=== PATIENT | female | born 1965 | race Caucasian/White ===

== ENCOUNTER 2017-04-14 21:09 | Inpatient (IN) | payer MEDICAID ==
[2017-04-14] MEDS ORDERED: Morphine Sulfate 2 mg/mL 1mL Syr IVP ONE (21:37)
--- NOTE | 2017-04-14 21:37 | ED Physician Chart ---
Chief Complaint/HPI - Patient Information Date Seen:: 04/14/17 Time Seen:: 21:10 Chief Complaint:: Abdominal Pain History of Present Illness:: onset x one day of intermittent, crampy, generalized Abdominal Pain, N/V/D; no H /As, Neck Pain, C/P, SOB, Cough, A/C, fever, chills, or urinary s/s Allergies:: Allergies Allergy/AdvReac Type Severity Reaction Status Date / Time codeine Allergy Verified 04/14/17 21:15 Vitals:: Vital Signs - 8 hr 04/14/17 21:10 Temp 97.7 F HR 89 RR 16 BP 117/76 O2 Sat % 97 Historian:: Patient, EMS, Medical Records Review:: Nurse's Note Reviewed, Old Chart Reviewed, EMS run form Reviewed, Transfer documents Reviewed Review of Systems - Review of Systems General/Constitutional: Fever, Chills, No weight loss, Weakness, No diaphoresis , No edema, No loss of appetite Skin: No skin lesions, No rash, No bruising Head: No headache, No light-headedness Eyes: No loss of vision, No pain, No diplopia ENT: No earache, No nasal drainage, No sore throat, No tinnitus Neck: No neck pain, No swelling, No thyromegaly, No stiffness, No mass noted Cardio Vascular: No chest pain, No palpitations, No PND, No orthopnea, No edema Pulmonary: No SOB, No cough, No sputum, No wheezing GI: Nausea, Vomiting, Diarrhea, No diarrhea, Pain, No melena, No hematochezia, Constipation, No hematemesis G/U: Dysuria, Frequency, No hematuria Computer Lab Assistant: No vaginal discharge, No abnormal vaginal bleed, No contraction Musculoskeletal: Bone or joint pain, Back pain, No muscle pain Endocrine: No polyuria, No polydipsia Psychiatric: No prior psych history, No depression, No anxiety, No suicidal ideation, No homicidal ideation, No auditory hallucination, No visual hallucination Hematopoietic: No bruising, No lymphadenopathy Allergic/Immuno: No urticaria, No angioedema Neurological: No syncope, No focal symptoms, No weakness, No paresthesia, No headache, No seizure, No dizziness, No confusion, No vertigo Past Medical History - Past Medical History Obtainable: Yes Past Medical History: CVA/TIA, Other (Cirrhosis; Cancer) Family History: HTN, Cancer Social History: Smoker, Alcohol, No Drug Use, Single Surgical History: Cholecystectomy, Hysterectomy, Hernia Psychiatricy History: None Medication: Reviewed Family Medical History - Family Member Mother History Unknown: Yes Ethnicity: Non- Living Status: Still Living Hx Family Cancer: Yes Father History Unknown: Yes Living Status: Hx Family Hypertension: Yes Physical Exam - Physical Examination General/Constitutional: Awake, Well-developed, well-nourished, Alert, No distress, GCS 15, Non-toxic appearing, Ambulatory Head: Atraumatic Eyes: Lids, conjuctiva normal, PERRL, EOMI Skin: Nl inspection, No rash, No skin lesions, No ecchymosis, Well hydrated, No lymphadenopathy ENMT: External ears, nose nl, Nasal exam nl, Lips, teeth, gums nl Neck: Nontender, Full ROM w/o pain, No JVD, No nuchal rigidity, No bruit, No mass, No stridor Respiratory: Nl effort/Exclusion, Clear to Auscultation, No Wheeze/Rhonchi/Rales Cardio Vascular: RRR, No murmur, gallop, rubs, NL S1 S2 GI: No tenderness/rebounding/guarding, No organomegaly, No hernia, Normal BS's, Nondistended, No mass/bruits, No McBurney tenderness Other GI comments:: + Ascites : No CVA tenderness Extremities: No tenderness or effusion, Full ROM, normal strength in all extremities, No edema, Normal digits & nails Neuro/Psych: Alert/oriented, DTR's symmetric, Normal sensory exam, Normal motor strength, Judgement/insight normal, Mood normal, Normal gait, No focal deficits Misc: normal gait, Normal back, No paraspinal tenderness Labs/Radiology/EKG Results - Lab Results Results: Glucose: 217; U/A: + Leukocytes; + WBCs (50 to 100); WBC: 18.5 - Radiology Results Results: NAD - EKG Interpretations EKG Time:: 21:52 Rate & Rhythm: 74; NSR Comments:: non-specific st-t changes ED Septic Shock - . Is Septic Shock (SBP<90, OR Lactate>4 mmol\L) present?: No - <6hrs of presentation: Vital Signs: Vital Signs - 8 hr 08// 21:10 Temp 97.7 F HR 89 RR 16 BP 117/76 O2 Sat % 97 Reassessment (Disposition) - Reassessment Reassessment Condition:: Improved - Diagnosis Diagnosis:: UTI; Cystitis; Urinary Tract Infection; Leukocytosis; Hyperglycemia; Abdominal Pain; Gastritis; Sepsis; Urosepsis - Aftercare/Follow up Instructions Aftercare/Follow-Up Instructions:: Counseled pt regarding lab results/diagnosis & need follow up, Counseled pt & family regarding lab results/diagnosis & need follow up - Patient Disposition Discharge/Transfer:: Acute Care w/in this hosp Accepting Physician:: Dr. Blanton Time Called:: 199 Time Responded:: 02:00 Admitted to:: Med/Surg Spoke to:: Dr. Blanton Admitting Medical Physician:: Dr. Blanton Condition at Disposition:: Stable, Improved
[2017-04-14] MEDS ORDERED: Sodium Chloride 0.9% 1,000 ML IV ONE (21:39)
[2017-04-14] MEDS ORDERED: Morphine Sulfate 2 mg/mL 1mL Syr ONE (21:45)
[2017-04-14 21:52] LABS: % EOSINOPHILS 0.2 % (0.0-5.0)
[2017-04-14 21:55] LABS: % LYMPHOCYTES 9.7 % (20.0-50.0); % NEUTROPHILS 87.1 % (40.0-80.0); HEMATOCRIT 37.5 % (35.0-45.0); HEMOGLOBIN 12.9 gm/dL (11.7-15.5); MEAN CELL VOLUME 88.6 fl (81-100); MEAN CORPUSCULAR HEMOGLOBIN 30.4 pg (27.0-31.0); MEAN CORPUSCULAR HGB CONC 34.3 pg (28.0-36.0); MEAN PLATELET VOLUME 7.6 fl; NEUTROPHILE ABSOLUTE 16.1 Th/cmm (1.8-8.0); PLATELET COUNT 216 Th/cmm (150-400); RED BLOOD COUNT 4.24 Mil/cmm (3.80-5.10); RED CELL DISTRIBUTION WIDTH 14.1 % (11.5-20.0)
[2017-04-14 22:06] LABS: URINE BILIRUBIN NEGATIVE (NEGATIVE); URINE BLOOD SMALL (NEGATIVE); URINE GLUCOSE (UA) NEGATIVE (NEGATIVE); URINE KETONE NEGATIVE (NEGATIVE); URINE PH 5.5 (4.6 - 8.0); URINE PROTEIN NEGATIVE (NEGATIVE); URINE UROBILINOGEN 0.2 E.U./dL (0.2 - 1.0)
[2017-04-14 22:06] LABS: WHITE BLOOD COUNT 18.5 Th/cmm (4.8-10.8)
[2017-04-14 22:08] LABS: INR 0.96 (0.5-1.4)
[2017-04-14 22:08] LABS: URINE COLOR YELLOW
[2017-04-14 22:12] LABS: TROP I < 0.01 ng/mL (0.01-0.05)
[2017-04-14 22:13] LABS: ALB/GLOB RATIO 1.4 (1.0-1.8); ALKALINE PHOSPHATASE 93 U/L (34-104); ANION GAP 12.3 (7.0-16.0); BILIRUBIN,TOTAL 0.3 mg/dL (0.3-1.0); BUN - UREA NITROGEN 13 mg/dL (7-25); BUN/CREATININE RATIO 18.6; CALCIUM SERUM 9.4 mg/dL (8.6-10.3); CARBON DIOXIDE 22.7 mEq/L (21.0-31.0); CHLORIDE 106 mEq/L (98-107); CHOLESTEROL 192 mg/dL (<200); CREATININE - SERUM 0.7 mg/dL (0.6-1.2); GLUCOSE 217 mg/dL (70-105); SGOT 32 U/L (13-39); SGPT/ALT 73 U/L (7-52); SODIUM SERUM 137 mEq/L (136-145); TRIGLYCERIDES 192 mg/dL (<150)
[2017-04-14 22:14] LABS: AMYLASE SERUM 24 U/L (29-103); LIPASE 8 U/L (11-82)
[2017-04-14 22:21] LABS: URINE WBC 50-100 /hpf (0-5)
[2017-04-14 22:22] LABS: URINE BACTERIA NONE SEEN /hpf (NONE SEEN); URINE EPITHELIAL CELLS MODERATE /lpf (FEW)
[2017-04-14] MEDS ORDERED: cefTRIAXone 1 GM in Sodium Chloride 0.9% 50 ML IV ONE (23:03)
[2017-04-15] MEDS: D5-0.45NS 1,000 ML IV SCH ×2 (04:37→15:47)
[2017-04-15] MEDS: Levofloxacin 500mg/100mL 500 MG/100 ML BAG IV SCH (04:39)
--- NOTE | 2017-04-15 08:35 | Diagnostic Imaging Report ---
Portable chest x-ray History: Pain Allowing for portable technique the heart size is normal. No focal pulmonary parenchymal processes. No hilar or mediastinal abnormalities. Impression: No acute abnormalities.
--- NOTE | 2017-04-15 08:35 | Diagnostic Imaging Report ---
CT scan abdomen and pelvis without intravenous contrast HISTORY: Pain Total DLP equals 464 CTDI equals 10.3 Axial sections were obtained from the xiphoid process down to the pubic symphysis. Limited sections the lower chest demonstrate mild pleural thickening and subpleural parenchymal density that appears chronic within the left lower hemithorax. There is a small to moderate hiatal hernia. Relatively large amount of fat noted adjacent to the esophagus and the gastroesophageal junction area. The liver appears enlarged. There is a decrease in overall hepatic parenchymal density consistent with fatty infiltration. No focal lesions. The spleen appears normal. No abnormality seen in the region of the pancreas. Surgical clips are noted in the neha hepatis region consistent with a prior cholecystectomy. Heterogeneous density noted in subcutaneous tissues of the periumbilical region probably related prior surgery. There is a mildly distended stool-filled ascending colon. The remainder of the pelvis demonstrates preservation of normal fat planes. No abnormal soft tissue masses or abnormal fluid collections. IMPRESSION: 1. Pleural parenchymal density in the periphery of the left lower hemithorax that appears chronic. As this is somewhat more prominent than on a prior CT scan of 09/13/2015, a follow-up exam in 4 months would confirm stability. 2. Small hiatal hernia 3. Hepatomegaly with evidence of fatty infiltration. The changes should be correlated with liver function tests 4. Moderately distended stool-filled ascending colon. 5. Status post cholecystectomy
--- NOTE | 2017-04-15 12:07 | History & Physical ---
ADMIT DATE: 04/15/2017 PATIENT IDENTIFICATION: This is a 51-year-old female. CHIEF COMPLAINT: Lower abdominal pain. HISTORY OF PRESENT ILLNESS: A 51-year-old female with history of breast cancer, approximately 3 years ago had a mastectomy, also has history of diverticulosis, currently disabled from her chronic back, takes multiple pain medications, presented to Emergency Room for acute onset of lower abdominal pain. The patient was worked up in the Emergency Room and I was told that the patient has a urinary tract infection. Upon evaluation, the patient looks in significant amount of pain in the lower part of the abdomen. The patient has been advised to be admitted for further treatment. PAST MEDICAL HISTORY: Remarkable for: 1. Chronic pain syndrome. 2. Anxiety, depression. 3. Chronic constipation. 4. Gastritis. 5. Degenerative joint disease. 6. History of deep venous thrombosis. 7. Hyperlipidemia. 8. Breast cancer. 9. Depression. MEDICATIONS AT HOME: She is taking Celexa at bedtime, and B12, Bentyl, Colace, Pepcid, gabapentin, hydroxyzine, Reglan, morphine, omeprazole, Xarelto, Zocor, and trazodone. ALLERGIES: The patient is allergic to codeine and morphine, but the patient is taking these medications at home without any difficulty. SOCIAL HISTORY: The patient currently lives in [facility] with her . The patient currently does not smoke, does not drink. FAMILY MEDICAL HISTORY: Remarkable for hypertension and diabetes. REVIEW OF SYSTEMS: The patient is complaining of significant amount of lower back pain as well the lower abdominal pain, but denies any fever, chills, nausea, vomiting, chest pain, cough, hematemesis, hematuria, hematochezia, or melena. No history of any seizure or syncopal episode. No history of weight loss and no history of weight gain. No history of any tingling, numbness. PHYSICAL EXAMINATION: GENERAL: The patient is alert, awake, oriented, lying in the bed with some acute distress secondary to pain. VITAL SIGNS: On physical exam, temperature 98, pulse is 74, respiratory rate 18, blood pressure 134/74. SKIN: Warm to touch. Adequate skin turgor. No petechia, no purpura. HEENT: Normocephalic, atraumatic. Extraocular muscles are intact. Tongue was pink and coated. Poor dentition noted. No oral lesion, no exudate. No sinus tenderness. External auditory canals and tympanic membranes are well visualized. NECK: Supple, no JVD, no hepatojugular reflex. No lymphadenopathy, thyromegaly or carotid bruit. HEART: Both heart sounds are regular. No S3, no S4, no murmur. CHEST: Lung equal in expansion, no wheezing, no crackles. ABDOMEN: Distended. A well healed surgical scar from previous done umbilical hernia repair noted. Diffuse tenderness in the lower part noted with some guarding. Bowel sounds are present. No palpable mass. EXTREMITIES: No edema, no cyanosis, no clubbing. Peripheral pulses +2. No calf tenderness noted. NEUROLOGIC: Nonfocal. AVAILABLE DIAGNOSTIC DATA: Has been reviewed, which include CBC, chemistry panel, urinalysis along with CT scan of the abdomen and pelvis, and chest x-ray. Total time reviewing the record is approximately 10 minutes. CLINICAL IMPRESSION: 1. Diverticulitis. 2. Urinary tract infection. 3. Chronic pain syndrome. 4. Lower back pain. 5. Hyperlipidemia. 6. Deep venous thrombosis. 7. Anxiety, depression. 8. Degenerative joint disease. 9. History of breast cancer, status post mastectomy. PLAN: 1. Admit this patient to Med/Surg floor. 2. Clear liquid diet. 3. IV fluid. 4. IV antibiotic. 5. GI consult. 6. Appropriate home medication reconciliation. 7. Follow lab. 8. Follow applications consultant's recommendations. 9. Care plan is reviewed and discussed with staff. JOB# [id number]
[2017-04-15] MEDS ORDERED: DICYCLOMINE HCL 20 MG PO SCH (14:00)
[2017-04-15] MEDS: Dicyclomine 10 mg Cap PO SCH ×2 (14:02→21:46)
[2017-04-15] MEDS ORDERED: MORPHINE 60 MG PO SCH (17:00)
[2017-04-15] MEDS ORDERED: Magnesium Citrate 1.75 GM/300 mL Bottle PO ONE (18:22)
[2017-04-15] MEDS ORDERED: Non-Formulary Item 1 EA (Trazodone Hcl [Trazodone Hcl] 150 MG) PO SCH (21:00)
--- NOTE | 2017-04-15 22:35 | Consultation ---
DATE OF CONSULTATION: 04/15/2017 REASON FOR CONSULTATION: Abdominal pain. HISTORY OF PRESENT ILLNESS: This consult was obtained through the request of Dr. Blanton for this 51-year-old with history of obesity, chronic pain syndrome, anxiety, depression, degenerative joint disease, history of DVT, hyperlipidemia, history of breast cancer, depression, admitted to the hospital for abdominal pain first diagnosed with diverticulosis, but later on while in the hospital, she was found to have more fecal impaction than diverticulitis, GI consult was called in for further evaluation. The patient denies any weight loss. No hematemesis, melena or hematochezia. She denies having any fever. PAST MEDICAL HISTORY: As stated above. There is back problem. There is pain, anxiety, depression, DVT, hyperlipidemia, breast cancer. PAST SURGICAL HISTORY: She had hysterectomy. She had mastectomy. She had hernia repair, cholecystectomy. 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 FAMILY HISTORY: Mother with breast cancer with mets. Father of neck cancer. REVIEW OF SYSTEMS: She has nausea. She has constipation, but no fever. ALLERGIES: CODEINE AND MORPHINE. MEDICATIONS AT HOME: Including Celexa, B12, Bentyl, Colace, Pepcid, gabapentin, hydroxyzine, Reglan, morphine, omeprazole, Xalatan, Zocor, and trazodone. PHYSICAL EXAMINATION: GENERAL: The patient is awake and oriented to self, place, and time, in mild to moderate distress. VITAL SIGNS: Blood pressure is 100/66, heart rate 65, respiratory rate 18, temperature is 98.7. HEAD AND NECK: Pupils reactive to light and accommodation. Extraocular muscles intact. Sclerae are anicteric. Conjunctivae not pale. Oral cavity, no lesion. NECK: Supple, no jugular venous distention, no carotid bruits or lymph node. CHEST: Good respiratory movements. LUNGS: Clear to auscultation. CARDIOVASCULAR: Regular rate and rhythm. No murmur or gallop. ABDOMEN: Soft, distended, obese, mild diffuse tenderness. Bowel sounds are present. EXTREMITIES: Lower extremities, no edema. CENTRAL NERVOUS SYSTEM: Nonfocal. LABORATORY DATA: White count 18.5, H and H are normal. The patient had a CAT scan, which did show diverticulosis, but showed fatty liver and large amount of fecal material. ASSESSMENT AND PLAN: 1. Abdominal pain, most probably due to fecal impaction, could be early mild diverticular disease, could be inflammatory bowel syndrome. We will give the patient magnesium citrate, then mineral oil. We will start with clear liquid diet. We will continue with antibiotics for now and recheck labs. 2. Fatty liver. We will watch. At this time liver enzymes are acceptable, slight elevation of ALT so we will watch for now and then further recommendations to follow. Thank you, Dr. Blanton for allowing me to participate in the care of this patient. If you have any further questions, please let me know. JOB# [id number] ALECIA
[2017-04-16] MEDS: D5-0.45NS 1,000 ML IV SCH ×2 (03:17→15:58)
[2017-04-16] MEDS: Levofloxacin 500mg/100mL 500 MG/100 ML BAG IV SCH (04:02)
[2017-04-16 06:55] LABS: % BASOPHILS 1.1 % (0.0-2.0); % EOSINOPHILS 0.6 % (0.0-5.0); % LYMPHOCYTES 35.5 % (20.0-50.0); % MONOCYTES 12.6 % (2.0-10.0); % NEUTROPHILS 50.2 % (40.0-80.0); HEMATOCRIT 40.1 % (35.0-45.0); HEMOGLOBIN 13.3 gm/dL (11.7-15.5); MEAN CELL VOLUME 89.8 fl (81-100); MEAN CORPUSCULAR HEMOGLOBIN 29.7 pg (27.0-31.0); MEAN CORPUSCULAR HGB CONC 33.1 pg (28.0-36.0); MEAN PLATELET VOLUME 7.5 fl; NEUTROPHILE ABSOLUTE 2.9 Th/cmm (1.8-8.0); PLATELET COUNT 208 Th/cmm (150-400); RED BLOOD COUNT 4.46 Mil/cmm (3.80-5.10); RED CELL DISTRIBUTION WIDTH 14.5 % (11.5-20.0)
[2017-04-16 07:09] LABS: WHITE BLOOD COUNT 5.7 Th/cmm (4.8-10.8)
[2017-04-16 07:37] LABS: ALB/GLOB RATIO 1.3 (1.0-1.8); ALKALINE PHOSPHATASE 86 U/L (34-104); ANION GAP 9.1 (7.0-16.0); BILIRUBIN,TOTAL 0.3 mg/dL (0.3-1.0); BUN - UREA NITROGEN 10 mg/dL (7-25); BUN/CREATININE RATIO 11.1; CALCIUM SERUM 9.2 mg/dL (8.6-10.3); CARBON DIOXIDE 27.9 mEq/L (21.0-31.0); CHLORIDE 108 mEq/L (98-107); CREATININE - SERUM 0.9 mg/dL (0.6-1.2); GLUCOSE 127 mg/dL (70-105); SGOT 33 U/L (13-39); SGPT/ALT 60 U/L (7-52); SODIUM SERUM 141 mEq/L (136-145)
[2017-04-16] MEDS ORDERED: OMEPRAZOLE MAGNESIUM 20 MG PO SCH (09:00)
[2017-04-16] MEDS ORDERED: CITALOPRAM HYDROBROMIDE 40 MG PO SCH (09:00)
--- NOTE | 2017-04-16 09:06 | General Progress Note ---
Subjective - Review of Systems Subjective: Patient is seen and examined. Patient feels better. She wants to eat. Still complaining about constipation. Denies any fever, chills, chest pain, shortness of breath, palpitation, dizziness, nausea, vomiting. Objective - Results Result Diagrams: 04/16/17 06:25 04/16/17 06:25 Recent Labs: Laboratory Last Values WBC 5.7 Th/cmm (4.8-10.8) D 04/16/17 06:25 RBC 4.46 Mil/cmm (3.80-5.10) 04/16/17 06:25 Hgb 13.3 gm/dL (11.7-15.5) 04/16/17 06:25 Hct 40.1 % (35.0-45.0) 04/16/17 06:25 MCV 89.8 fl (81-100) 04/16/17 06:25 MCH 29.7 pg (27.0-31.0) 04/16/17 06:25 MCHC Differential 33.1 pg (28.0-36.0) 04/16/17 06:25 RDW 14.5 % (11.5-20.0) 04/16/17 06:25 Plt Count 208 Th/cmm (150-400) 04/16/17 06:25 MPV 7.5 fl 04/16/17 06:25 Neutrophils % 50.2 % (40.0-80.0) 04/16/17 06:25 Lymphocytes % 35.5 % (20.0-50.0) 04/16/17 06:25 Monocytes % 12.6 % (2.0-10.0) H 04/16/17 06:25 Eosinophils % 0.6 % (0.0-5.0) 04/16/17 06:25 Basophils % 1.1 % (0.0-2.0) 04/16/17 06:25 PT 10.0 SECONDS (9.5-11.5) 04/14/17 21:46 INR 0.96 (0.5-1.4) 04/14/17 21:46 PTT (Actin FS) 24.8 SECONDS (26.0-38.0) L 04/14/17 21:43 Sodium 141 mEq/L (136-145) 04/16/17 06:25 Potassium 4.0 mEq/L (3.5-5.1) 04/16/17 06:25 Chloride 108 mEq/L (98-107) H 04/16/17 06:25 Carbon Dioxide 27.9 mEq/L (21.0-31.0) 04/16/17 06:25 Anion Gap 9.1 (7.0-16.0) 04/16/17 06:25 BUN 10 mg/dL (7-25) 04/16/17 06:25 Creatinine 0.9 mg/dL (0.6-1.2) 04/16/17 06:25 Est GFR ( Amer) > 60.0 ml/min (>90) 04/16/17 06:25 Est GFR (Non-Af Amer) > 60.0 ml/min 04/16/17 06:25 BUN/Creatinine Ratio 11.1 04/16/17 06:25 Glucose 127 mg/dL (70-105) H 04/16/17 06:25 Hemoglobin A1c % 5.5 % (4.0-6.0) 04/14/17 21:43 Whole Bld Lactic Acid 1.79 mmol/L (0.60-1.99) 04/14/17 22:58 Calcium 9.2 mg/dL (8.6-10.3) 04/16/17 06:25 Total Bilirubin 0.3 mg/dL (0.3-1.0) 04/16/17 06:25 AST 33 U/L (13-39) 04/16/17 06:25 ALT 60 U/L (7-52) H 04/16/17 06:25 Alkaline Phosphatase 86 U/L (34-104) 04/16/17 06:25 Creatine Kinase 67 U/L (30-223) 04/14/17 21:46 Troponin I < 0.01 ng/mL (0.01-0.05) L 04/14/17 21:46 B-Natriuretic Peptide 102.0 pg/mL (5.0-100.0) H 04/14/17 21:46 Total Protein 6.3 gm/dL (6.0-8.3) 04/16/17 06:25 Albumin 3.5 gm/dL (3.7-5.3) L 04/16/17 06:25 Globulin 2.8 gm/dL 04/16/17 06:25 Albumin/Globulin Ratio 1.3 (1.0-1.8) 04/16/17 06:25 Triglycerides 192 mg/dL (<150) H 04/14/17 21:46 Cholesterol 192 mg/dL (<200) 04/14/17 21:46 LDL Cholesterol Direct 143 mg/dL (75-193) 04/14/17 21:46 HDL Cholesterol 39 mg/dL (23-92) 04/14/17 21:46 Amylase 24 U/L (29-103) L 04/14/17 21:46 Lipase 8 U/L (11-82) L 04/14/17 21:46 Serum , Qual NEGATIVE (NEGATIVE) 04/14/17 21:46 Urine Source RANDOM 04/14/17 21:30 Urine Color YELLOW 04/14/17 21:30 Urine Clarity CLOUDY (CLEAR) H 04/14/17 21:30 Urine pH 5.5 (4.6 - 8.0) 04/14/17 21:30 Ur Specific [place] >= 1.030 (1.005-1.030) 04/14/17 21:30 Urine Protein NEGATIVE mg/dL (NEGATIVE) 04/14/17 21:30 Urine Glucose (UA) NEGATIVE mg/dL (NEGATIVE) 04/14/17 21:30 Urine Ketones NEGATIVE mg/dL (NEGATIVE) 04/14/17 21:30 Urine Blood SMALL (NEGATIVE) H 04/14/17 21:30 Urine Nitrate NEGATIVE (NEGATIVE) 04/14/17 21:30 Urine Bilirubin NEGATIVE (NEGATIVE) 04/14/17 21:30 Urine Urobilinogen 0.2 E.U./dL (0.2 - 1.0) 04/14/17 21:30 Ur Leukocyte Esterase SMALL (NEGATIVE) H 04/14/17 21:30 Urine RBC 5-10 /hpf (0-5) H 04/14/17 21:30 Urine WBC 50-100 /hpf (0-5) H 04/14/17 21:30 Ur Epithelial Cells MODERATE /lpf (FEW) 04/14/17 21:30 Urine Bacteria NONE SEEN /hpf (NONE SEEN) 04/14/17 21:30 Urine Test NEGATIVE 04/14/17 21:30 - Physical Exam Vitals and I&O: Vital Signs Temp 96.4 F 04/16/17 04:00 Pulse 74 04/16/17 04:00 Resp 20 04/16/17 04:00 BP 106/72 04/16/17 04:00 Pulse Ox 96 04/16/17 04:00 Intake & Output 04/15/17 04/16/17 04/16/17 18:59 06:59 18:59 Intake Total 1800 400 Balance 1800 400 Weight (lbs) 63.639 kg 63.503 kg Intake: Intake, IV Amount 1000 100 D5-0.45NS 1,000 ml @ 100 1000 mls/hr IV .Q10H [facility] Rx#: [id number] Levofloxacin 500mg/100mL 100 500 mg In 100 ml @ 100 mls/hr IV Q24H [facility] Rx#: [id number] Oral 800 300 Other: # Voids 5 3 # Bowel Movements 0 1 Active Medications: Current Medications Citalopram Hydrobromide (Celexa) 40 mg PO DAILY [facility] Stop: 06/15/17 08:59 Cyanocobalamin (Vitamin B12) 100 mcg PO DAILY [facility] Stop: 06/15/17 08:59 Dicyclomine HCl (Bentyl) 20 mg PO TID [facility] Stop: 06/14/17 13:59 Last Admin: 04/15/17 21:46 Dose: 20 mg Docusate Sodium (Colace) 250 mg PO BID [facility] Stop: 06/14/17 16:59 Last Admin: 04/15/17 17:24 Dose: 250 mg Famotidine (Pepcid) 20 mg PO DAILY [facility] Stop: 06/15/17 08:59 Gabapentin (Neurontin) 300 mg PO QID [facility] Stop: 06/14/17 12:59 Last Admin: 04/15/17 21:46 Dose: 300 mg Hydroxyzine HCl (Atarax) 25 mg PO Q8HR PRN; Protocol PRN Reason: Itching Stop: 06/14/17 10:04 Last Admin: 04/16/17 05:47 Dose: 25 mg Dextrose/Sodium Chloride (D5-0.45ns) 1,000 mls @ 100 mls/hr IV .Q10H [facility] Stop: 06/14/17 02:16 Last Admin: 04/16/17 03:17 Dose: Not Given Levofloxacin (Levaquin Pb) 500 mg in 100 mls @ 100 mls/hr IV Q24H [facility] Stop: 06/14/17 02:59 Last Infusion: 04/16/17 05:02 Dose: Infused Lactulose (Cephulac) 30 gm PO TID [facility] Stop: 06/15/17 08:59 Metronidazole (Flagyl) 500 mg PO Q8HR [facility] Stop: 06/14/17 04:59 Last Admin: 04/16/17 04:03 Dose: 500 mg Mineral Oil (Mineral Oil 30 Ml) 30 ml PO BID [facility] Stop: 06/14/17 18:29 Last Admin: 04/15/17 18:52 Dose: 30 ml Morphine Sulfate (Ms-Contin) 60 mg PO BID PRN PRN Reason: Severe Pain Stop: 06/14/17 16:59 Last Admin: 04/15/17 20:47 Dose: 60 mg Pantoprazole Sodium (Protonix) 40 mg PO DAILY [facility] Stop: 06/15/17 08:59 Rivaroxaban (Xarelto) 10 mg PO DAILY [facility] Stop: 06/15/17 08:59 Simvastatin (Zocor) 20 mg PO DAILY [facility] PRN Reason: Protocol Stop: 06/15/17 08:59 Trazodone HCl (Desyrel) 150 mg PO HS [facility] Stop: 06/14/17 20:59 Last Admin: 04/15/17 21:46 Dose: 150 mg General: Alert, Oriented x3, Cooperative HEENT: Atraumatic, PERRLA, EOMI Neck: Supple Cardiovascular: Regular rate, Normal S1, Normal S2 Lungs: Clear to auscultation Abdomen: Bowel sounds, Soft, Tender, Distended Extremities: Other (no edema, no cyanosis, no clubbing.) Neurological: Normal gait, Normal speech Skin: Rash Psych/Mental Status: Mental status NL - Procedures Procedures: Procedures Procedure Code Date INJECT/INFUSE NEC 99.29 01/18/13 Assessment/Plan - Problem List Patient Problems: All Active Problems Chronic low back pain (Acute) M54.5 Fall (Acute) W19.XXXA - Assessment Assessment: Acute diverticulitis. Urinary tract infection. History of breast cancer. Chronic pain syndrome. Chronic back pain. DJD. Leukocytosis better. - Plan Plan: Start on clear liquid diet. Increase activity. Follow lab. Follow-up consultants recommendation. Avoid constipation. General nursing care. Continue current treatment plan. Care plan reviewed and discussed with staff.
[2017-04-16] MEDS: Pantoprazole 40 mg EC Tab PO SCH (09:25)
[2017-04-16] MEDS: Dicyclomine 10 mg Cap PO SCH ×3 (09:26→21:48)
[2017-04-16] MEDS: Lactulose 10 Gm/15 mL 30mL UDC PO SCH ×4 (13:59→21:48)
--- NOTE | 2017-04-16 15:43 | GI Progress Note ---
Subjective - Review of Systems Service Date: 04/16/17 Events since last encounter: Pt reports she has had 6 loose brown BMs since being given magnesium citrate yesterday. Her abd pain has since improved. Objective - Results Result Diagrams: 04/16/17 06:25 04/16/17 06:25 Recent Labs: Laboratory Last Values WBC 5.7 Th/cmm (4.8-10.8) D 04/16/17 06:25 RBC 4.46 Mil/cmm (3.80-5.10) 04/16/17 06:25 Hgb 13.3 gm/dL (11.7-15.5) 04/16/17 06:25 Hct 40.1 % (35.0-45.0) 04/16/17 06:25 MCV 89.8 fl (81-100) 04/16/17 06:25 MCH 29.7 pg (27.0-31.0) 04/16/17 06:25 MCHC Differential 33.1 pg (28.0-36.0) 04/16/17 06:25 RDW 14.5 % (11.5-20.0) 04/16/17 06:25 Plt Count 208 Th/cmm (150-400) 04/16/17 06:25 MPV 7.5 fl 04/16/17 06:25 Neutrophils % 50.2 % (40.0-80.0) 04/16/17 06:25 Lymphocytes % 35.5 % (20.0-50.0) 04/16/17 06:25 Monocytes % 12.6 % (2.0-10.0) H 04/16/17 06:25 Eosinophils % 0.6 % (0.0-5.0) 04/16/17 06:25 Basophils % 1.1 % (0.0-2.0) 04/16/17 06:25 PT 10.0 SECONDS (9.5-11.5) 04/14/17 21:46 INR 0.96 (0.5-1.4) 04/14/17 21:46 PTT (Actin FS) 24.8 SECONDS (26.0-38.0) L 04/14/17 21:43 Sodium 141 mEq/L (136-145) 04/16/17 06:25 Potassium 4.0 mEq/L (3.5-5.1) 04/16/17 06:25 Chloride 108 mEq/L (98-107) H 04/16/17 06:25 Carbon Dioxide 27.9 mEq/L (21.0-31.0) 04/16/17 06:25 Anion Gap 9.1 (7.0-16.0) 04/16/17 06:25 BUN 10 mg/dL (7-25) 04/16/17 06:25 Creatinine 0.9 mg/dL (0.6-1.2) 04/16/17 06:25 Est GFR ( Amer) > 60.0 ml/min (>90) 04/16/17 06:25 Est GFR (Non-Af Amer) > 60.0 ml/min 04/16/17 06:25 BUN/Creatinine Ratio 11.1 04/16/17 06:25 Glucose 127 mg/dL (70-105) H 04/16/17 06:25 Hemoglobin A1c % 5.5 % (4.0-6.0) 04/14/17 21:43 Whole Bld Lactic Acid 1.79 mmol/L (0.60-1.99) 04/14/17 22:58 Calcium 9.2 mg/dL (8.6-10.3) 04/16/17 06:25 Total Bilirubin 0.3 mg/dL (0.3-1.0) 04/16/17 06:25 AST 33 U/L (13-39) 04/16/17 06:25 ALT 60 U/L (7-52) H 04/16/17 06:25 Alkaline Phosphatase 86 U/L (34-104) 04/16/17 06:25 Creatine Kinase 67 U/L (30-223) 04/14/17 21:46 Troponin I < 0.01 ng/mL (0.01-0.05) L 04/14/17 21:46 B-Natriuretic Peptide 102.0 pg/mL (5.0-100.0) H 04/14/17 21:46 Total Protein 6.3 gm/dL (6.0-8.3) 04/16/17 06:25 Albumin 3.5 gm/dL (3.7-5.3) L 04/16/17 06:25 Globulin 2.8 gm/dL 04/16/17 06:25 Albumin/Globulin Ratio 1.3 (1.0-1.8) 04/16/17 06:25 Triglycerides 192 mg/dL (<150) H 04/14/17 21:46 Cholesterol 192 mg/dL (<200) 04/14/17 21:46 LDL Cholesterol Direct 143 mg/dL (75-193) 04/14/17 21:46 HDL Cholesterol 39 mg/dL (23-92) 04/14/17 21:46 Amylase 24 U/L (29-103) L 04/14/17 21:46 Lipase 8 U/L (11-82) L 04/14/17 21:46 Serum , Qual NEGATIVE (NEGATIVE) 04/14/17 21:46 Urine Source RANDOM 04/14/17 21:30 Urine Color YELLOW 04/14/17 21:30 Urine Clarity CLOUDY (CLEAR) H 04/14/17 21:30 Urine pH 5.5 (4.6 - 8.0) 04/14/17 21:30 Ur Specific [place] >= 1.030 (1.005-1.030) 04/14/17 21:30 Urine Protein NEGATIVE mg/dL (NEGATIVE) 04/14/17 21:30 Urine Glucose (UA) NEGATIVE mg/dL (NEGATIVE) 04/14/17 21:30 Urine Ketones NEGATIVE mg/dL (NEGATIVE) 04/14/17 21:30 Urine Blood SMALL (NEGATIVE) H 04/14/17 21:30 Urine Nitrate NEGATIVE (NEGATIVE) 04/14/17 21:30 Urine Bilirubin NEGATIVE (NEGATIVE) 04/14/17 21:30 Urine Urobilinogen 0.2 E.U./dL (0.2 - 1.0) 04/14/17 21:30 Ur Leukocyte Esterase SMALL (NEGATIVE) H 04/14/17 21:30 Urine RBC 5-10 /hpf (0-5) H 04/14/17 21:30 Urine WBC 50-100 /hpf (0-5) H 04/14/17 21:30 Ur Epithelial Cells MODERATE /lpf (FEW) 04/14/17 21:30 Urine Bacteria NONE SEEN /hpf (NONE SEEN) 04/14/17 21:30 Urine Test NEGATIVE 04/14/17 21:30 - Physical Exam Vitals and I&O: Vital Signs Temp 97.7 F 04/16/17 12:00 Pulse 62 04/16/17 12:00 Resp 18 04/16/17 12:00 BP 95/53 04/16/17 12:00 Pulse Ox 96 04/16/17 12:00 Intake & Output 04/15/17 04/16/17 04/16/17 18:59 06:59 18:59 Intake Total 1800 400 Balance 1800 400 Weight (lbs) 63.639 kg 63.503 kg Intake: Intake, IV Amount 1000 100 D5-0.45NS 1,000 ml @ 100 1000 mls/hr IV .Q10H [facility] Rx#: [id number] Levofloxacin 500mg/100mL 100 500 mg In 100 ml @ 100 mls/hr IV Q24H [facility] Rx#: [id number] Oral 800 300 Other: # Voids 5 3 # Bowel Movements 0 1 Active Medications: Current Medications Citalopram Hydrobromide (Celexa) 40 mg PO DAILY [facility] Stop: 06/15/17 08:59 Last Admin: 04/16/17 09:26 Dose: 40 mg Cyanocobalamin (Vitamin B12) 100 mcg PO DAILY [facility] Stop: 06/15/17 08:59 Last Admin: 04/16/17 09:25 Dose: 100 mcg Dicyclomine HCl (Bentyl) 20 mg PO TID [facility] Stop: 06/14/17 13:59 Last Admin: 04/16/17 14:00 Dose: 20 mg Docusate Sodium (Colace) 250 mg PO BID [facility] Stop: 06/14/17 16:59 Last Admin: 04/16/17 09:27 Dose: 250 mg Famotidine (Pepcid) 20 mg PO DAILY [facility] Stop: 06/15/17 08:59 Last Admin: 04/16/17 09:25 Dose: 20 mg Gabapentin (Neurontin) 300 mg PO QID [facility] Stop: 06/14/17 12:59 Last Admin: 04/16/17 12:12 Dose: 300 mg Hydroxyzine HCl (Atarax) 25 mg PO Q8HR PRN; Protocol PRN Reason: Itching Stop: 06/14/17 10:04 Last Admin: 04/16/17 05:47 Dose: 25 mg Dextrose/Sodium Chloride (D5-0.45ns) 1,000 mls @ 100 mls/hr IV .Q10H [facility] Stop: 06/14/17 02:16 Last Admin: 08/18/17 03:17 Dose: Not Given Levofloxacin (Levaquin Pb) 500 mg in 100 mls @ 100 mls/hr IV Q24H [facility] Stop: 06/14/17 02:59 Last Infusion: 04/16/17 05:02 Dose: Infused Lactulose (Cephulac) 30 gm PO TID [facility] Stop: 06/15/17 10:59 Last Admin: 04/16/17 14:38 Dose: Not Given Metronidazole (Flagyl) 500 mg PO Q8HR [facility] Stop: 06/14/17 04:59 Last Admin: 04/16/17 12:12 Dose: 500 mg Mineral Oil (Mineral Oil 30 Ml) 30 ml PO BID [facility] Stop: 06/14/17 18:29 Last Admin: 04/16/17 09:29 Dose: Not Given Morphine Sulfate (Ms-Contin) 60 mg PO BID PRN PRN Reason: Severe Pain Stop: 06/14/17 16:59 Last Admin: 04/15/17 20:47 Dose: 60 mg Pantoprazole Sodium (Protonix) 40 mg PO DAILY [facility] Stop: 06/15/17 08:59 Last Admin: 04/16/17 09:25 Dose: 40 mg Rivaroxaban (Xarelto) 10 mg PO DAILY [facility] Stop: 06/15/17 08:59 Last Admin: 04/16/17 09:26 Dose: 10 mg Simvastatin (Zocor) 20 mg PO DAILY [facility] PRN Reason: Protocol Stop: 06/15/17 08:59 Last Admin: 04/16/17 09:26 Dose: 20 mg Trazodone HCl (Desyrel) 150 mg PO HS [facility] Stop: 06/14/17 20:59 Last Admin: 04/15/17 21:46 Dose: 150 mg General: Alert, Oriented x3, Cooperative HEENT: Atraumatic, PERRLA, EOMI Neck: Supple Cardiovascular: Regular rate, Normal S1, Normal S2 Lungs: Clear to auscultation Abdomen: Bowel sounds, Soft, Other (non tender) Extremities: Other (no edema, no cyanosis, no clubbing.) Neurological: Normal gait, Normal speech Skin: Rash Psych/Mental Status: Mental status NL - Procedures Procedures: Procedures Procedure Code Date INJECT/INFUSE NEC 99.29 01/18/13 Assessment/Plan - Problem List Patient Problems: All Active Problems Chronic low back pain (Acute) M54.5 Fall (Acute) W19.XXXA - Assessment Assessment: Assessment and plan: # Abdominal pain # Elevated ALT Abd pain likely related to obstipation given she feels much better after given mag citrate. CT scan showed colon full of stool on admission. Her ALT remains mildly elevated although improved. Suspect this is related to NAFLD, and the patient would benefit from weight loss and regular exercise. Plan: - Continue on adequate bowel regimen to prevent obstipation recurrence - can advance diet as tolerated - weight loss
[2017-04-17] MEDS: D5-0.45NS 1,000 ML IV SCH ×2 (01:56→05:40)
[2017-04-17] MEDS: Levofloxacin 500mg/100mL 500 MG/100 ML BAG IV SCH (03:33)
[2017-04-17 07:33] LABS: ALB/GLOB RATIO 1.3 (1.0-1.8); ALKALINE PHOSPHATASE 84 U/L (34-104); ANION GAP 7.6 (7.0-16.0); BILIRUBIN,TOTAL 0.3 mg/dL (0.3-1.0); BUN - UREA NITROGEN 5 mg/dL (7-25); BUN/CREATININE RATIO 6.3; CALCIUM SERUM 9.4 mg/dL (8.6-10.3); CARBON DIOXIDE 28.2 mEq/L (21.0-31.0); CHLORIDE 106 mEq/L (98-107); CREATININE - SERUM 0.8 mg/dL (0.6-1.2); GLUCOSE 150 mg/dL (70-105); POTASSIUM SERUM 3.8 mEq/L (3.5-5.1); SGOT 24 U/L (13-39); SGPT/ALT 48 U/L (7-52); SODIUM SERUM 138 mEq/L (136-145)
[2017-04-17 07:35] LABS: % BASOPHILS 0.6 % (0.0-2.0); % EOSINOPHILS 1.1 % (0.0-5.0); % LYMPHOCYTES 29.6 % (20.0-50.0); % MONOCYTES 10.5 % (2.0-10.0); % NEUTROPHILS 58.2 % (40.0-80.0); HEMATOCRIT 36.3 % (35.0-45.0); HEMOGLOBIN 12.3 gm/dL (11.7-15.5); MEAN CELL VOLUME 88.2 fl (81-100); MEAN CORPUSCULAR HEMOGLOBIN 29.9 pg (27.0-31.0); MEAN CORPUSCULAR HGB CONC 33.9 pg (28.0-36.0); NEUTROPHILE ABSOLUTE 3.1 Th/cmm (1.8-8.0); PLATELET COUNT 189 Th/cmm (150-400); RED BLOOD COUNT 4.12 Mil/cmm (3.80-5.10); RED CELL DISTRIBUTION WIDTH 14.3 % (11.5-20.0); WHITE BLOOD COUNT 5.4 Th/cmm (4.8-10.8)
[2017-04-17] MEDS: Lactulose 10 Gm/15 mL 30mL UDC PO SCH (09:37)
[2017-04-17] MEDS: Pantoprazole 40 mg EC Tab PO SCH (09:39)
[2017-04-17] MEDS: Dicyclomine 10 mg Cap PO SCH (09:50)
--- NOTE | 2017-04-17 11:22 | General Progress Note ---
Subjective - Review of Systems Subjective: Patient is seen and examined. Patient feels better. Patient denies any fever , chills, chest pain, shortness of breath, palpitation, dizziness, nausea, vomiting. GI not noted. Objective - Results Result Diagrams: 04/17/17 05:56 04/17/17 05:56 Recent Labs: Laboratory Last Values WBC 5.4 Th/cmm (4.8-10.8) 04/17/17 05:56 RBC 4.12 Mil/cmm (3.80-5.10) 04/17/17 05:56 Hgb 12.3 gm/dL (11.7-15.5) 04/17/17 05:56 Hct 36.3 % (35.0-45.0) 04/17/17 05:56 MCV 88.2 fl (81-100) 04/17/17 05:56 MCH 29.9 pg (27.0-31.0) 04/17/17 05:56 MCHC Differential 33.9 pg (28.0-36.0) 04/17/17 05:56 RDW 14.3 % (11.5-20.0) 04/17/17 05:56 Plt Count 189 Th/cmm (150-400) 04/17/17 05:56 MPV 8.0 fl 04/17/17 05:56 Neutrophils % 58.2 % (40.0-80.0) 04/17/17 05:56 Lymphocytes % 29.6 % (20.0-50.0) 04/17/17 05:56 Monocytes % 10.5 % (2.0-10.0) H 04/17/17 05:56 Eosinophils % 1.1 % (0.0-5.0) 04/17/17 05:56 Basophils % 0.6 % (0.0-2.0) 04/17/17 05:56 PT 10.0 SECONDS (9.5-11.5) 04/14/17 21:46 INR 0.96 (0.5-1.4) 04/14/17 21:46 PTT (Actin FS) 24.8 SECONDS (26.0-38.0) L 04/14/17 21:43 Sodium 138 mEq/L (136-145) 04/17/17 05:56 Potassium 3.8 mEq/L (3.5-5.1) 04/17/17 05:56 Chloride 106 mEq/L (98-107) 04/17/17 05:56 Carbon Dioxide 28.2 mEq/L (21.0-31.0) 04/17/17 05:56 Anion Gap 7.6 (7.0-16.0) 04/17/17 05:56 BUN 5 mg/dL (7-25) L 04/17/17 05:56 Creatinine 0.8 mg/dL (0.6-1.2) 04/17/17 05:56 Est GFR ( Amer) > 60.0 ml/min (>90) 04/17/17 05:56 Est GFR (Non-Af Amer) > 60.0 ml/min 04/17/17 05:56 BUN/Creatinine Ratio 6.3 04/17/17 05:56 Glucose 150 mg/dL (70-105) H 04/17/17 05:56 Hemoglobin A1c % 5.5 % (4.0-6.0) 04/14/17 21:43 Whole Bld Lactic Acid 1.79 mmol/L (0.60-1.99) 04/14/17 22:58 Calcium 9.4 mg/dL (8.6-10.3) 04/17/17 05:56 Total Bilirubin 0.3 mg/dL (0.3-1.0) 04/17/17 05:56 AST 24 U/L (13-39) 04/17/17 05:56 ALT 48 U/L (7-52) 04/17/17 05:56 Alkaline Phosphatase 84 U/L (34-104) 04/17/17 05:56 Creatine Kinase 67 U/L (30-223) 04/14/17 21:46 Troponin I < 0.01 ng/mL (0.01-0.05) L 04/14/17 21:46 B-Natriuretic Peptide 102.0 pg/mL (5.0-100.0) H 04/14/17 21:46 Total Protein 5.6 gm/dL (6.0-8.3) L 04/17/17 05:56 Albumin 3.2 gm/dL (3.7-5.3) L 04/17/17 05:56 Globulin 2.4 gm/dL 04/17/17 05:56 Albumin/Globulin Ratio 1.3 (1.0-1.8) 04/17/17 05:56 Triglycerides 192 mg/dL (<150) H 04/14/17 21:46 Cholesterol 192 mg/dL (<200) 04/14/17 21:46 LDL Cholesterol Direct 143 mg/dL (75-193) 04/14/17 21:46 HDL Cholesterol 39 mg/dL (23-92) 04/14/17 21:46 Amylase 24 U/L (29-103) L 04/14/17 21:46 Lipase 8 U/L (11-82) L 04/14/17 21:46 Serum , Qual NEGATIVE (NEGATIVE) 04/14/17 21:46 Urine Source RANDOM 04/14/17 21:30 Urine Color YELLOW 04/14/17 21:30 Urine Clarity CLOUDY (CLEAR) H 04/14/17 21:30 Urine pH 5.5 (4.6 - 8.0) 04/14/17 21:30 Ur Specific [place] >= 1.030 (1.005-1.030) 04/14/17 21:30 Urine Protein NEGATIVE mg/dL (NEGATIVE) 04/14/17 21:30 Urine Glucose (UA) NEGATIVE mg/dL (NEGATIVE) 04/14/17 21:30 Urine Ketones NEGATIVE mg/dL (NEGATIVE) 04/14/17 21:30 Urine Blood SMALL (NEGATIVE) H 04/14/17 21:30 Urine Nitrate NEGATIVE (NEGATIVE) 04/14/17 21:30 Urine Bilirubin NEGATIVE (NEGATIVE) 04/14/17 21:30 Urine Urobilinogen 0.2 E.U./dL (0.2 - 1.0) 04/14/17 21:30 Ur Leukocyte Esterase SMALL (NEGATIVE) H 04/14/17 21:30 Urine RBC 5-10 /hpf (0-5) H 04/14/17 21:30 Urine WBC 50-100 /hpf (0-5) H 04/14/17 21:30 Ur Epithelial Cells MODERATE /lpf (FEW) 04/14/17 21:30 Urine Bacteria NONE SEEN /hpf (NONE SEEN) 04/14/17 21:30 Urine Test NEGATIVE 04/14/17 21:30 - Physical Exam Vitals and I&O: Vital Signs Temp 97.7 F 04/17/17 07:59 Pulse 61 04/17/17 07:59 Resp 18 04/17/17 07:59 BP 96/55 04/17/17 07:59 Pulse Ox 96 04/17/17 07:59 Intake & Output 04/16/17 04/17/17 04/17/17 18:59 06:59 18:59 Intake Total 1596.667 Balance 1596.667 Weight (lbs) 63.503 kg 65.317 kg 65.317 kg Intake: Intake, IV Amount 996.667 D5-0.45NS 1,000 ml @ 100 996.667 mls/hr IV .Q10H [facility] Rx#: [id number] Oral 600 Other: # Voids 3 6 # Bowel Movements 2 6 Active Medications: Current Medications Citalopram Hydrobromide (Celexa) 40 mg PO DAILY [facility] Stop: 06/15/17 08:59 Last Admin: 04/17/17 09:39 Dose: 40 mg Cyanocobalamin (Vitamin B12) 100 mcg PO DAILY [facility] Stop: 06/15/17 08:59 Last Admin: 04/17/17 09:40 Dose: 100 mcg Dicyclomine HCl (Bentyl) 20 mg PO TID [facility] Stop: 06/14/17 13:59 Last Admin: 04/17/17 09:50 Dose: 20 mg Diphenhydramine HCl (Benadryl) 25 mg PO Q6HR PRN PRN Reason: Itching Stop: 06/15/17 23:26 Last Admin: 04/16/17 23:54 Dose: 25 mg Docusate Sodium (Colace) 250 mg PO BID [facility] Stop: 06/14/17 16:59 Last Admin: 04/17/17 09:39 Dose: 250 mg Famotidine (Pepcid) 20 mg PO DAILY [facility] Stop: 06/15/17 08:59 Last Admin: 04/17/17 09:41 Dose: 20 mg Gabapentin (Neurontin) 300 mg PO QID [facility] Stop: 06/14/17 12:59 Last Admin: 04/17/17 09:41 Dose: 300 mg Hydroxyzine HCl (Atarax) 25 mg PO Q8HR PRN; Protocol PRN Reason: Itching Stop: 06/14/17 10:04 Last Admin: 04/16/17 05:47 Dose: 25 mg Dextrose/Sodium Chloride (D5-0.45ns) 1,000 mls @ 100 mls/hr IV .Q10H [facility] Stop: 06/14/17 02:16 Last Admin: 04/17/17 05:40 Dose: Not Given Levofloxacin (Levaquin Pb) 500 mg in 100 mls @ 100 mls/hr IV Q24H [facility] Stop: 06/14/17 02:59 Last Admin: 04/17/17 03:33 Dose: 100 mls/hr Lactulose (Cephulac) 30 gm PO TID [facility] Stop: 06/15/17 10:59 Last Admin: 04/17/17 09:37 Dose: 30 gm Metronidazole (Flagyl) 500 mg PO Q8HR [facility] Stop: 06/14/17 04:59 Last Admin: 04/17/17 05:40 Dose: 500 mg Mineral Oil (Mineral Oil 30 Ml) 30 ml PO BID [facility] Stop: 06/14/17 18:29 Last Admin: 04/17/17 09:39 Dose: 30 ml Morphine Sulfate (Ms-Contin) 60 mg PO BID PRN PRN Reason: Severe Pain Stop: 06/14/17 16:59 Last Admin: 04/17/17 09:50 Dose: 60 mg Pantoprazole Sodium (Protonix) 40 mg PO DAILY [facility] Stop: 06/15/17 08:59 Last Admin: 04/17/17 09:39 Dose: 40 mg Rivaroxaban (Xarelto) 10 mg PO DAILY [facility] Stop: 06/15/17 08:59 Last Admin: 04/17/17 09:40 Dose: 10 mg Simvastatin (Zocor) 20 mg PO DAILY [facility] PRN Reason: Protocol Stop: 06/15/17 08:59 Last Admin: 04/17/17 09:40 Dose: 20 mg Trazodone HCl (Desyrel) 150 mg PO HS [facility] Stop: 06/14/17 20:59 Last Admin: 04/16/17 21:47 Dose: 150 mg General: Alert, Oriented x3, Cooperative HEENT: Atraumatic, PERRLA, EOMI Neck: Supple Cardiovascular: Regular rate, Normal S1, Normal S2 Lungs: Clear to auscultation Abdomen: Bowel sounds, Soft, Other (non tender) Extremities: Other (no edema, no cyanosis, no clubbing.) Neurological: Normal gait, Normal speech Skin: Rash Psych/Mental Status: Mental status NL - Procedures Procedures: Procedures Procedure Code Date INJECT/INFUSE NEC 99.29 01/18/13 Assessment/Plan - Problem List Patient Problems: All Active Problems Chronic low back pain (Acute) M54.5 Fall (Acute) W19.XXXA - Assessment Assessment: Acute diverticulitis. Urinary tract infection. History of breast cancer. Chronic pain syndrome. Chronic back pain. DJD. Leukocytosis better. - Plan Plan: Discharge home. High-fiber diet. Avoid Constipation. Review of the medication as prescribed. Follow-up with primary M.Santosh in 1 week. Medication list reviewed and reconciled. Nutritional Asmnt/Malnutr-PDOC - Dietary Evaluation Malnutrition Findings (Please click <Entered> for more info): Nutritional Asmnt/Malnutrition Start: 04/15/17 15: 07 Text: Status: Complete Freq: Document 04/15/17 18:10 [facility] (Rec: 04/16/17 12:00 [facility] [id number]) Nutritional Asmnt/Malnutrition Patient General Information Nutritional Screening High Risk Screening Diagnosis Diverticulitis, UTI Pertinent Medical Hx/Surgical Hx Chronic pain syndrome, anxiety , depression, chronic constipation, gastritis, degenerative joint disease, hx DVT, hyperlipidemia, breast cancer. Pt denied hx DM. Subjective Information Pt is a 51-year-old female admitted with chief complaint of lower abdominal pain. Pt was awake and alert during time of visit. Pt denies any current nausea or vomiting. Pt is tolerating clear liquid diet; food preferences noted. Pt reports last BM was 2 days ago. Pt has had a fair appetite prior to admit, eating 4-5 small meals throughout the day. Wt has been stable. No muscle or fat depletion assessed. Current Diet Order/ Nutrition Support Clear liquid Patient / S.O Can Pertinent Medications Vitamin B12, Colace, Pepcid, Levaquin, Flagyl, Protonix, Zocor Pertinent Labs (04/14) Glucose 217H, A1C WNL, ALT 73H, Triglycerides 192H Nutritional Hx/Data Height 1.5 m Height (Calculated Centimeters) 149.9 Current Weight (lbs) 63.639 kg Weight (Calculated Kilograms) 63.6 Weight (Calculated Grams) 10171.0 Usual body Weight (lbs) 142 % Usual Body Weight 99 [place] Body Weight 97.5 % [place] Body Weight 144 Recent Weight Change No Weight Status Overweight GI Symptoms GI Symptoms Constipation Food Allergies No Cultural/Ethnic/[place]eterian Belief No cultural beliefs provided but pt reports she avoids dairy because it makes her bloat. Pt wants milk only for breakfast. FNS notified. Usual diet at home Regular Skin Integrity/Comment: Yunior Kumar. Skin intact. Current %PO Good (75-100%) Estimated Nutritional Goals BEE in Kcals: Using Current wt Calories/Kcals/Kg Based on current wt 63.8 kg with consideration of overwt status Kcals Calculated 5092-6279 kcals/day (20-25 kcals/kg) Protein: Using Current wt Protein g/kg: Based on current wt 63.8 kg with consideration of overwt status Protein Calculated 51-64 gm/day (0.8-1 gm/kg) Fluid: ml Per MD/DO Nutritional Problem 1. Problem Problem Altered GI function related to Etiology diverticulitis as evidenced by Signs/Symptoms: H&P, abdominal pain, and need for liquid diet. Malnutrition Alert Protein-Calorie Malnutrition N/A Is there a minimum of two criteria No selected? Query Text:Check all the applicable criteria. A minimum of two criteria are recommended for diagnosis of either severe or non-severe malnutrition. Malnutrition Related to Morbid Obesity Malnutrition related to morbid obesity No Intervention/Recommendation Recommendations by RD Dietary Education by RD1 Comments 1. When medically feasible, advance as tolerated to soft/ bland diet. 2. Educate pt on low fiber diet at follow up once diet advances. Expected Outcomes/Goals Expected Outcomes/Goals Have pt meet at least 75% of estimated nutritional needs with acceptable tolerance. Physician Parameters for PEM Serum Albumin (g/dl) 3.5 - 5.0 (Normal)
--- NOTE | 2017-04-17 12:47 | Discharge Summary ---
DATE OF DISCHARGE: 04/17/2017 PATIENT IDENTIFICATION: A 51-year-old female. PRINCIPAL DIAGNOSES: 1. Diverticulitis. 2. Urinary tract infection. 3. Chronic pain syndrome. 4. Hyperlipidemia. 5. History of deep venous thrombosis. 6. Anxiety, depression. 7. Degenerative joint disease. 8. History of breast cancer. BRIEF STATEMENT FOR THE REASON FOR ADMISSION: A 51-year-old female who presented to the Emergency Room for evaluation of acute onset of lower abdominal pain. The patient was worked up in the Emergency Room, noted to have diverticulitis. The patient is admitted to the hospital for further treatment. Please refer to my dictated medical H and P for further information. HOSPITAL COURSE: The patient was admitted to med/surg floor. The patient was placed on clear liquid diet, IV fluid, IV antibiotic, and GI consult was requested, appropriate home medicine was reconciliated. The patient was seen by plant engineering manager, Dr. Morrison, agree with the treatment plan. The patient was followed by from GI point and according to him, the patient has possible early diverticulitis, agrees with 7-day course of antibiotic and advance diet as tolerated. The patient remained asymptomatic from GI standpoint. This patient's also the diet was advanced and the patient is discharged home in stable condition with diagnosis of diverticulitis and take Levaquin for 7 days. At the time of discharge, all of her meds are reconciliated. The patient is advised to take other medication as the patient was receiving at home. JOB# [id number]
--- NOTE | 2017-04-17 22:12 | Admit Criteria Form ---
Admit Criteria Forms - Admit Criteria Diagnosis: URINARY COMPLICATIONS Clinical Indications for Inpatient Care (Place 'X' for any and all applicable criteria): Ongoing inpatient care may be indicated for urinary complications with ANY ONE of the following: [X ]I. Urinary tract infection requiring inpatient care as indicated by ANY ONE of the following(8)(19)(20): [ ]a) Severe symptoms (eg, high fever, severe pain) [ ]b) Vomiting or dehydration requiring ongoing inpatient care [ X]c) IV antibiotic needs that cannot be managed at lower level of care [ ]d) Hemodynamic instability [ ]e) Obstruction of collecting system by stone or tumor [ ]II. Urinary retention requiring drainage or surgery (3)(4)(5)(17)(18) [ ]III. Renal failure (Use Renal Failure Criteria for further information.) [ ]IV. Oliguria(30) [ ]V. Post obstructive diuresis requiring close monitoring of urine output and intravenous compensation for excessive fluid losses(33) Extended stay beyond goal length of stay for primary condition may be needed until ALL of the following are present(3)(4)(5)(8): [ ]a) Renal function (creatinine) at baseline, or daily decreases in creatinine consistent with renal function return [ ]b) Voiding adequately or with urinary catheter or percutaneous suprapubic tube and management regimen in place that is performable at lower level of care. [ ]c) Urine output adequate [ ]d) Fever absent or resolving [ ]e) Infection absent or treatable at next level of care The original [employer] content created by [employer] has been revised. The portions of the content which have been revised are identified through the use of italic text or in bold, and [facility] has neither reviewed nor approved the modified material. All other unmodified content is copyright [facility] Please see references footnoted in the original [facility] GetNotes edition 2016 Admit Criteria Met?: Yes
== END 2017-04-17 14:00 | disposition home or self-care (01) | DRG 244 ==
LOC: ER 21:09 → MSI 04-15 02:15
PROVIDERS: ADMIT Internal Medicine; ATTEND Internal Medicine
DX: K57.92 Diverticulitis of intestine, part unspecified, without perforation or abscess without bleeding (principal); R18.8 Other ascites; K74.60 Unspecified cirrhosis of liver; K56.41 Fecal impaction; G89.4 Chronic pain syndrome; E78.5 Hyperlipidemia, unspecified; M19.90 Unspecified osteoarthritis, unspecified site; F41.9 Anxiety disorder, unspecified; F17.210 Nicotine dependence, cigarettes, uncomplicated; K29.70 Gastritis, unspecified, without bleeding; R73.9 Hyperglycemia, unspecified; F32.9 Major depressive disorder, single episode, unspecified; M54.5 Low back pain; E66.9 Obesity, unspecified; K76.0 Fatty (change of) liver, not elsewhere classified; Z85.3 Personal history of malignant neoplasm of breast; Z86.718 Personal history of other venous thrombosis and embolism; Z86.73 Personal history of transient ischemic attack (TIA), and cerebral infarction without residual deficits; Z88.5 Allergy status to narcotic agent; Z82.49 Family history of ischemic heart disease and other diseases of the circulatory system; Z80.9 Family history of malignant neoplasm, unspecified; Z90.49 Acquired absence of other specified parts of digestive tract; Z83.3 Family history of diabetes mellitus; Z90.10 Acquired absence of unspecified breast and nipple; Z90.710 Acquired absence of both cervix and uterus; Z68.29 Body mass index [BMI] 29.0-29.9, adult; N39.0 Urinary tract infection, site not specified
CPT/HCPCS: 36415-UA; 71010-TC; 80053-TC; 80061-TC; 81001-TC; 81025-TC; 82150-TC; 82550-TC; 83036-90; 83605; 83690-TC; 83880-TC; 84484-TC; 84703-TC; 85025-TC; 85610-TC; 85730-TC; 87086-90; 93005; 94760; 96375; J0696; J1200; J1885; J1956; J2270; J2405; J7030; Z7610